=== PATIENT | female | born 1960 | race African-American/Black ===

== ENCOUNTER → 2016-05-15 | Outpatient (CLI) | payer MEDICARE, OTHER ==
[2016-05-15 11:00] LABS: CHOLESTEROL 197.75 mg/dL (0-200); Direct HDL 54 mg/dL (>40); TRIGLYCERIDES 57 mg/dL (<150)
[2016-05-15 11:25] LABS: DIRECT LDL 114 mg/dL (<100)
== END ==
LOC: OD 09:54
PROVIDERS: ATTEND Internal Medicine Geriatric Medicine
DX: I10 Essential (primary) hypertension (principal)
CPT/HCPCS: 36415; 80061

== ENCOUNTER → 2017-04-02 | Outpatient (CLI) | payer MEDICARE, OTHER ==
--- NOTE | 2017-04-03 10:16 | RADIOLOGY REPORT (SQ) ---
EXAM DESCRIPTION: SHOULDER LEFT 2 OR MORE VIEWS COMPLETED DATE/TIME: 04/03/2017 10:07 am REASON FOR STUDY: PAIN IN LEFT SHOULDER M25.512 PAIN IN LEFT SHOULDER COMPARISON: None. NUMBER OF VIEWS: Three views. TECHNIQUE: Internal rotation, external rotation, and Y view images acquired of the left shoulder. LIMITATIONS: Large patient, nonstandard radiographic positioning FINDINGS: MINERALIZATION: Normal. BONES: No acute fracture or dislocation. No worrisome bone lesions. JOINTS: Glenohumeral joint and acromioclavicular joint space narrowing and mild bony spurring. VISUALIZED LUNGS AND RIBS: No pneumothorax. No rib fracture. SOFT TISSUES: No radiopaque foreign body. OTHER: No other significant finding. IMPRESSION: No acute fracture or malalignment TECHNICAL DOCUMENTATION: JOB ID: [id number] [email or web address]- [email or web address] Rights Reserved
== END ==
LOC: OD 16:26
PROVIDERS: ATTEND Physician Assistant
DX: M25.512 Pain in left shoulder (principal)